=== PATIENT | female | born 1950 | race Caucasian/White ===

== ENCOUNTER 2016-04-06 06:30 | Inpatient (IN) | payer OTHER ==
[2016-04-05 09:15] VITALS: BMI 38.7
[2016-04-06] VITALS (27 sets, daily range): BP systolic 106–188; BP diastolic 60–103; PULSE 56–90; RESP 10–20; Ht 160 cm; Wt 102.1 kg
[~2016-04-06] VITALS: Ht 160 cm; Wt 102.1 kg
[~2016-04-06 06:30] MED LIST: IBUP-1542 PO
[2016-04-06] MEDS ORDERED: BACITRACIN 50000 UNITS INJ ONE (07:43)
[2016-04-06] MEDS ORDERED: morphine SULFATE/PF (10 MG/10 ML) INJ ONE (07:57)
[2016-04-06] MEDS ORDERED: FENTAnyl 50 MCG/ML VIAL ONE (07:58)
[2016-04-06] MEDS ORDERED: PROPOFOL 40 ML ONE ×2 (07:58→10:09)
[2016-04-06] MEDS ORDERED: POLYMYXIN B 500000 UNIT INJ ONE (08:02)
--- NOTE | 2016-04-06 08:23 | HPN ---
Date/Time of Note Date/Time of Note DATE: 04/06/16 TIME: 08:23 Interval H&P Admission Note Pt. seen H&P reviewed: No system changes RANJITH MICHELLE MD Apr 06, 2016 08:23
[2016-04-06] MEDS ORDERED: MIDAZOLAM 1 MG/ML 2 ML INJ ONE (08:28)
[2016-04-06] MEDS ORDERED: TRANEXAMIC ACID 1,020 MG in SOD CHLORIDE 0.9% 100 ML IVPB ONE (08:30)
[2016-04-06] MEDS ORDERED: CEFAZOLIN 1 GM INJ ONE (08:47)
[2016-04-06] MEDS ORDERED: ROPIVACAINE 0.5 % 30 ML VIAL ONE ×2 (09:25→10:08)
[2016-04-06] MEDS ORDERED: CLONIDINE 1000 MCG INJ ONE (09:25)
[2016-04-06] MEDS ORDERED: HYDROmorphONE 1 MG/ML SYG IV PRN ×2 (10:00)
[2016-04-06] MEDS ORDERED: NALOXONE (0.4 MG/ML) INJ IV PRN ×2 (10:00→11:00)
[2016-04-06] MEDS ORDERED: ZOLPIDEM 5 MG TAB PO PRN ×2 (10:00→11:00)
[2016-04-06] MEDS ORDERED: ONDANSETRON 4 MG INJ IV PRN (10:00)
[2016-04-06] MEDS ORDERED: HEMOSTATIC MATRIX SYG ZFS ONE (10:31)
--- NOTE | 2016-04-06 10:58 | OPPN ---
Date/Time of Note Date/Time of Note DATE: 04/06/16 TIME: 10:56 Operative/Procedure Note Right knee OA Pre-Operative Diagnosis Right knee OA Post-Operative Diagnosis Same Procedure Right Total knee replacement Surgeon: RANJITH MICHELLE MD Glass Cut Off Tender: KATHI DURAN Anesthesiologist: GINNY MALIK DO Implants/Grafts [employer] Implants Femur size 4 Tibia size 4 Insert 13 mm Patella A38 Drains None Complications: None Anesthesia type: regional RANJITH MICHELLE MD Apr 06, 2016 10:58
[2016-04-06] MEDS ORDERED: MAGNESIUM HYDROXIDE 30ML CUP PO PRN (11:00)
[2016-04-06] MEDS ORDERED: DOCUSATE SODIUM 100 MG CAP PO ONE (11:00)
[2016-04-06] MEDS ORDERED: SENNA/DOCUSATE NA (8.6MG/50MG) TAB PO PRN (11:00)
[2016-04-06] MEDS ORDERED: oxyCODONE 5 MG TAB PO PRN ×2 (11:00)
[2016-04-06] MEDS: CEFAZOLIN 1 GM/50 ML (PMX) 50 ML IVPB SCH ×2 (11:55→18:48)
[2016-04-06] MEDS: DIPHENHYDRAMINE 50 MG INJ IV PRN ×2 (11:57→17:25)
[2016-04-06] MEDS: ACETAMINOPHEN 500 MG TAB PO SCH ×3 (12:00→23:32)
--- NOTE | 2016-04-06 12:00 | OPR ---
DATE OF OPERATION: 04/06/2016 PREOPERATIVE DIAGNOSIS: Right knee osteoarthritis, severe. POSTOPERATIVE DIAGNOSIS: Right knee osteoarthritis, severe. OPERATION PERFORMED: Right total knee replacement. SURGEON: Castillo Montanez MD GREY ROLL WORKER: PETEY Loera ANESTHESIA: Spinal anesthetic adductor canal block with general endotracheal anesthesia. ANESTHESIOLOGIST: Dr. Mamadou Randall INDICATIONS FOR PROCEDURE: Ms. Moreland is a 65-year-old female who has had progressive pain in the rig ht knee related to severe osteoarthritis. She has failed nonoperative treatment and now presents fo r elective right total knee replacement. Risks and benefits were discussed, risks including but not limited to infection, bleeding, blood dudley ts, hardware failure, hardware prominence, dislocation, fracture, nerve damage, blood vessel damage, along with anesthetic complications, and informed consent was obtained. DESCRIPTION OF PROCEDURE: The patient's correct extremity was identified in the preoperative area. She was brought back to the operating room where she had a spinal anesthetic. She then had general endotracheal anesthesia. Right lower extremity was prepped and draped in standard sterile manner. Preoperative antibiotics were administered. A time-out was performed. I then used an Esmarch to e xsanguinate the extremity, a thigh tourniquet was inflated to 250 mmHg. I then made a standard midli ne incision for approaching the knee. I went through skin and subcutaneous tissue, incised the fasc ia, made a medial parapatellar arthrotomy, flexed the knee, made an entry hole in the distal femur, made my distal femoral cut. I then marked the rotation 3 degrees of external rotation. I then made my anterior, posterior chamfer cuts. I then turned my attention to the tibia. I put my retractors , made my tibial cut until flexion and extension gaps were symmetric with a 13 block. I then triale d using a size 4 femur, size 4 tibia, and a 13 insert. The knee went from full extension to full fl exion with just a jog opening varus valgus stress. I then turned my attention to patella and over t he top a cutting guide was used to cut the patellar to the appropriate thickness. An asymmetr ic 38 patella had a good fit and did track well without any external pressure. I then made my peg h oles through the femoral trial. I punched the tibia. I then took out all trial instruments and tho roughly irrigated the bony surfaces, dried them with a lap sponge, and then cemented a size 4 tibia, size 4 femur, asymmetric 38 patella, a trialed 13 insert was placed until cement hardened, I then t ook out the trial insert and let down the tourniquet, obtained adequate hemostasis. I then impacted a 13 mm all poly insert until it locked into place. I did not need to use a drain. I thoroughly i rrigated the knee joint and closed the medial parapatellar arthrotomy with #1 Vicryl, subcutaneous t issue was closed with 2-0 Vicryl, skin with darrell. Dry sterile dressing was applied. The patient had 2+ dorsalis pedis pulse with a warm foot at the end of the case. She was then extubated and tr ansported to recovery in stable condition. Dictated By: CASTILLO MONTANEZ MD, RA/MYRTLE Conf#: [id number] DID#: [id number]
--- NOTE | 2016-04-06 12:00 | RADRPT ---
PROCEDURE: XR right knee. CLINICAL INDICATION: Knee pain. TECHNIQUE: AP and lateral views are available for review. COMPARISON: No comparison available FINDINGS: There is a postoperative total knee replacement. There is no evidence of loosening of the prosthesis . The osseous structures are normal in mineralization, architecture and alignment No acute fracture or dislocation is seen.No osseous lesions are identified. There are postoperative soft tissue es . IMPRESSION: Unremarkable postoperative total knee replacement. Postoperative soft tissue changes RPTAT: [facility]DB .Bernardino Canchola MD, Date Time Electronically viewed and signed by .Bernardino Canchola MD, on 04/06/2016 12:00 .B/
[2016-04-06] MEDS: ONDANSETRON 4 MG INJ IV SCH ×3 (12:07→23:32)
[2016-04-06] MEDS ORDERED: hydrALAzine 20 MG INJ ONE (12:30)
[2016-04-06] MEDS: hydrALAzine 20 MG INJ IV PRN ×2 (13:09→13:13)
[2016-04-06] MEDS: hydrOXYzine HCL 10 MG TAB GTB PRN ×2 (15:22→21:44)
[2016-04-06] MEDS: oxyCODONE 5 MG TAB PO PRN (23:32)
[2016-04-07 00:05] VITALS: BP 113/52; RESP 20
[2016-04-07] MEDS: CEFAZOLIN 1 GM/50 ML (PMX) 50 ML IVPB SCH (03:16)
[2016-04-07 04:00] VITALS: BP 121/58; PULSE 86; RESP 18
[2016-04-07 05:32] LABS: BASOPHILS % 0.3 % (0.0-2.0); EOSINOPHILS # 0.2 10^3/ul (0.0-0.5); EOSINOPHILS % 1.5 % (0.0-7.0); HEMATOCRIT 33.3 % (37.0-47.0); HEMOGLOBIN 11.4 g/dl (12.0-16.0); LYMPHOCYTES # 1.6 10^3/ul (0.8-2.9); LYMPHOCYTES % 14.5 % (15.0-51.0); MEAN CORPUSCULAR HEMOGLOBIN 30.1 pg (29.0-33.0); MEAN CORPUSCULAR HGB CONC 34.4 g/dl (32.0-37.0); MEAN CORPUSCULAR VOLUME 87.3 fl (82.0-101.0); MEAN PLATELET VOLUME 9.2 fl (7.4-10.4); MONOCYTE # 0.9 10^3/ul (0.3-0.9); NEUTROPHIL # 8.5 10^3/ul (1.6-7.5); NEUTROPHILS % 75.7 % (39.0-77.0); PLATELET COUNT 185 10^3/UL (140-440); RED BLOOD COUNT 3.81 10^6/ul (4.20-5.40); RED CELL DISTRIBUTION WIDTH 13.3 % (11.5-14.5); UNCORRECTED WBC 11.3 10^3/ul (4.8-10.8); WHITE BLOOD COUNT 11.3 10^3/ul (4.8-10.8)
[2016-04-07] MEDS: hydrOXYzine HCL 10 MG TAB GTB PRN (05:54)
[2016-04-07] MEDS: ACETAMINOPHEN 500 MG TAB PO SCH ×3 (05:54→18:14)
[2016-04-07] MEDS: ONDANSETRON 4 MG INJ IV SCH (05:54)
[2016-04-07 05:57] LABS: CONDITION 1
[2016-04-07 06:02] LABS: INR 1.15; PROTIME 14.7 Sec (12.2-14.2); PT RATIO 1.1
[2016-04-07 06:20] LABS: POTASSIUM 4.2 mmol/L (3.5-5.1)
[2016-04-07 06:23] LABS: CREATININE 0.84 mg/dl (0.44-1.00)
[2016-04-07 07:00] VITALS: BP 127/60; RESP 20
[2016-04-07] MEDS: oxyCODONE 5 MG TAB PO PRN (07:26)
--- NOTE | 2016-04-07 09:04 | PN ---
Date/Time of Note Date/Time of Note DATE: 04/07/16 TIME: 09:02 Assessment/Plan Lines/Catheters IV Catheter Type (from Nrs): Peripheral IV Russo in Place (from Nrs): Yes Assessment/Plan Chief Complaint/Hosp Course s/p R Total Knee replacement Problems: Assessment/Plan OOB with PT, CPM Aspirin for DVT prophylaxis SCD's B LE D/c Russo Discharge planning, home on Saturday Subjective 24 Hr Interval Summary Complaining of some pain Exam/Review of Systems Vital Signs Vitals Vital Signs Date Time Temp Pulse Resp B/P Pulse Ox O2 Delivery O2 Flow Rate FiO2 04/07/16 07:00 98.1 77 20 127/60 97 04/07/16 04:00 Room Air 04/06/16 11:30 6.0 Intake and Output 04/06/16 04/06/16 04/07/16 15:00 23:00 07:00 Intake Total 1300 ml 750 ml 550 ml Output Total 350 ml 1100 ml 1100 ml Balance 950 ml -350 ml -550 ml Exam Free Text/Dictation R LE- Dressing c/d/i. Calf soft and non tender Foot warm 2+ DP Intact motor and sensory function in toes Constitutional: alert Results Result Diagram: 04/07/16 0415 04/07/16 0415 RANJITH MICHELLE MD Apr 07, 2016 09:04
[2016-04-07] MEDS: DOCUSATE SODIUM 100 MG CAP PO SCH ×2 (10:09→20:01)
[2016-04-07] MEDS: ASPIRIN (EC) 325 MG TAB PO SCH ×2 (10:09→20:01)
--- NOTE | 2016-04-07 11:32 | PN ---
Date/Time of Note Date/Time of Note DATE: 04/07/16 TIME: 11:31 Assessment/Plan VTE Prophylaxis VTE Prophylaxis Intervention: other Lines/Catheters IV Catheter Type (from Nrsg): Saline Lock Urinary Cath still in place: No (DC'D) Assessment/Plan Chief Complaint/Hosp Course 1) knee pain - s/p total knee replacement - PT Problems: Subjective 24 Hr Interval Summary Free Text/Dictation Pruritis is better but now patient is concerned about being too drowsy with narcotic pain medication Exam/Review of Systems Vital Signs Vitals Vital Signs Date Time Temp Pulse Resp B/P Pulse Ox O2 Delivery O2 Flow Rate FiO2 04/07/16 08:00 2.0 04/07/16 07:00 98.1 77 20 127/60 97 04/07/16 04:00 Room Air Intake and Output 04/06/16 04/06/16 04/07/16 15:00 23:00 07:00 Intake Total 1300 ml 750 ml 550 ml Output Total 350 ml 1100 ml 1100 ml Balance 950 ml -350 ml -550 ml Exam Constitutional: well developed Head: atraumatic, normocephalic Neck: supple Respiratory: clear to auscultation Cardiovascular: regular rate and rhythm Gastrointestinal: non-tender, soft Results Result Diagram: 04/07/16 0415 04/07/16 0415 Results 24 hrs Laboratory Tests Test 04/07/16 04:15 Anion Gap 13 Basophils # 0.0 Basophils % 0.3 Blood Urea Nitrogen 16 Calcium Level 8.0 L Carbon Dioxide Level 26 Chloride Level 101 Creatinine 0.84 Eosinophils # 0.2 Eosinophils % 1.5 Glucose Level 130 Hematocrit 33.3 L Hemoglobin 11.4 L INR International Normalized Ratio 1.15 Lymphocytes # 1.6 Lymphocytes % 14.5 L Mean Corpuscular Hemoglobin 30.1 Mean Corpuscular Hemoglobin Concent 34.4 Mean Corpuscular Volume 87.3 Mean Platelet Volume 9.2 Monocytes # 0.9 Monocytes % 8.0 Neutrophils # 8.5 H Neutrophils % 75.7 Nucleated Red Blood Cells # 0.0 Nucleated Red Blood Cells % 0.0 Platelet Count 185 Potassium Level 4.2 Prothrombin Time 14.7 H Prothrombin Time Ratio 1.1 Red Blood Count 3.81 L Red Cell Distribution Width 13.3 Sodium Level 136 White Blood Count 11.3 H Medications Medications Current Medications Oxycodone HCl (Roxicodone) 20 mg Q3H PRN PO PAIN LEVEL 8-10; Start 04/06/16 at 11:00 Oxycodone HCl (Roxicodone) 10 mg Q3H PRN PO PAIN LEVEL 4-7 Last administered on 04/07/16 07:26; Admin Dose 10 MG; Start 04/06/16 at 11:00 Oxycodone HCl (Roxicodone) 5 mg Q3H PRN PO PAIN LEVEL 1-3; Start 04/06/16 at 11 :00 Acetaminophen (Tylenol Tab) 500 mg Q6 PO Last administered on 04/07/16 05:54; Admin Dose 500 MG; Start 04/06/16 at 12:00 Zolpidem Tartrate (Ambien) 5 mg HS PRN PO INSOMNIA; Start 04/06/16 at 11:00 Aspirin (Ecotrin) 325 mg BID PO Last administered on 04/07/16 10:09; Admin Dose 325 MG; Start 04/07/16 at 09:00 Pantoprazole (Protonix Tab) 40 mg DAILY@06 PO ; Start 04/08/16 at 06:00 Docusate Sodium (Colace) 200 mg BID PO Last administered on 04/07/16 10:09; Admin Dose 200 MG; Start 04/07/16 at 09:00; Stop 04/10/16 at 08:59 Senna/Docusate Sodium (Senokot-S) 2 tab BID PRN PO CONSTIPATION; Start at 11:00 Magnesium Hydroxide (Milk Of Mag) 30 ml HS PRN PO CONSTIPATION; Start 04/06/16 at 11:00 Naloxone HCl (Narcan) 0.2 mg Q2M PRN IV DECREASED REPIRATORY RATE; Start at 11:00 Hydroxyzine HCl (Atarax) 10 mg Q6H PRN GTB ITCHING Last administered on 05:54; Admin Dose 10 MG; Start 04/06/16 at 15:00 Clonidine (Catapres) 0.1 mg Q6H PRN PO SBP GREATER THAN 160 Last administered on 04/06/16 17:25; Admin Dose 0.1 MG; Start 04/06/16 at 17:00 JACINTO GILLIAM Apr 07, 2016 11:32
[2016-04-07] MEDS: HYDROCODONE/APAP (5/325) TAB PO PRN ×2 (16:55→21:23)
[2016-04-07 19:39] VITALS: BP 176/77; RESP 20
[2016-04-07 22:19] VITALS: BP 163/73; PULSE 72; RESP 18
[2016-04-08] VITALS (8 sets, daily range): BP systolic 123–193; BP diastolic 62–79; PULSE 68–97; RESP 16–20
[2016-04-08] MEDS: ACETAMINOPHEN 500 MG TAB PO SCH ×5 (00:55→23:58)
[2016-04-08 05:45] LABS: INR 1.22; PROTIME 15.5 Sec (12.2-14.2); PT RATIO 1.2
[2016-04-08 05:46] LABS: POTASSIUM 3.9 mmol/L (3.5-5.1)
[2016-04-08 05:48] LABS: CREATININE 0.82 mg/dl (0.44-1.00)
[2016-04-08 05:49] LABS: CALCIUM 8.5 mg/dl (8.4-10.2)
[2016-04-08 05:55] LABS: BASOPHILS % 0.3 % (0.0-2.0); EOSINOPHILS # 0.1 10^3/ul (0.0-0.5); HEMATOCRIT 32.9 % (37.0-47.0); HEMOGLOBIN 11.5 g/dl (12.0-16.0); LYMPHOCYTES # 2.6 10^3/ul (0.8-2.9); LYMPHOCYTES % 23.4 % (15.0-51.0); MEAN CORPUSCULAR HEMOGLOBIN 30.5 pg (29.0-33.0); MEAN CORPUSCULAR HGB CONC 34.9 g/dl (32.0-37.0); MEAN CORPUSCULAR VOLUME 87.6 fl (82.0-101.0); MEAN PLATELET VOLUME 9.1 fl (7.4-10.4); MONOCYTE # 1.1 10^3/ul (0.3-0.9); MONOCYTES % 9.7 % (0.0-11.0); NEUTROPHIL # 7.4 10^3/ul (1.6-7.5); NEUTROPHILS % 65.6 % (39.0-77.0); PLATELET COUNT 183 10^3/UL (140-440); RED BLOOD COUNT 3.76 10^6/ul (4.20-5.40); RED CELL DISTRIBUTION WIDTH 13.4 % (11.5-14.5); UNCORRECTED WBC 11.3 10^3/ul (4.8-10.8); WHITE BLOOD COUNT 11.3 10^3/ul (4.8-10.8)
[2016-04-08] MEDS: PANTOPRAZOLE (EC) 40 MG TAB PO SCH (06:02)
[2016-04-08 06:52] LABS: CONDITION 1
[2016-04-08] MEDS: ASPIRIN (EC) 325 MG TAB PO SCH ×2 (08:35→20:05)
[2016-04-08] MEDS: DOCUSATE SODIUM 100 MG CAP PO SCH ×2 (08:35→20:05)
--- NOTE | 2016-04-08 12:15 | PN ---
Date/Time of Note Date/Time of Note DATE: 04/08/16 TIME: 12:15 Assessment/Plan VTE Prophylaxis VTE Prophylaxis Intervention: other Lines/Catheters IV Catheter Type (from Nrsg): Saline Lock Urinary Cath still in place: No Assessment/Plan Chief Complaint/Hosp Course 1) knee pain - s/p total knee replacement - PT Problems: Subjective 24 Hr Interval Summary Free Text/Dictation Patient feels better, able to ambulate now Exam/Review of Systems Vital Signs Vitals Vital Signs Date Time Temp Pulse Resp B/P Pulse Ox O2 Delivery O2 Flow Rate FiO2 04/08/16 12:11 94 144/66 04/08/16 07:26 98.6 16 96 04/08/16 06:08 Room Air 04/07/16 08:00 2.0 Intake and Output 04/07/16 04/07/16 04/08/16 15:00 23:00 07:00 Intake Total 940 ml 900 ml Output Total 1100 ml Balance 940 ml -200 ml Exam Constitutional: well developed Head: atraumatic, normocephalic Neck: supple Respiratory: clear to auscultation Cardiovascular: regular rate and rhythm Gastrointestinal: non-tender, soft Results Result Diagram: 04/08/16 0425 04/08/16 0425 Results 24 hrs Laboratory Tests Test 04/08/16 04:25 Anion Gap 14 Basophils # 0.0 Basophils % 0.3 Blood Urea Nitrogen 14 Calcium Level 8.5 Carbon Dioxide Level 29 Chloride Level 97 Creatinine 0.82 Eosinophils # 0.1 Eosinophils % 1.0 Glucose Level 117 Hematocrit 32.9 L Hemoglobin 11.5 L INR International Normalized Ratio 1.22 Lymphocytes # 2.6 Lymphocytes % 23.4 Mean Corpuscular Hemoglobin 30.5 Mean Corpuscular Hemoglobin Concent 34.9 Mean Corpuscular Volume 87.6 Mean Platelet Volume 9.1 Monocytes # 1.1 H Monocytes % 9.7 Neutrophils # 7.4 Neutrophils % 65.6 Nucleated Red Blood Cells # 0.0 Nucleated Red Blood Cells % 0.0 Platelet Count 183 Potassium Level 3.9 Prothrombin Time 15.5 H Prothrombin Time Ratio 1.2 Red Blood Count 3.76 L Red Cell Distribution Width 13.4 Sodium Level 136 White Blood Count 11.3 H Medications Medications Current Medications Oxycodone HCl (Roxicodone) 20 mg Q3H PRN PO PAIN LEVEL 8-10; Start 04/06/16 at 11:00 Oxycodone HCl (Roxicodone) 10 mg Q3H PRN PO PAIN LEVEL 4-7 Last administered on 04/07/16 07:26; Admin Dose 10 MG; Start 04/06/16 at 11:00 Oxycodone HCl (Roxicodone) 5 mg Q3H PRN PO PAIN LEVEL 1-3; Start 04/06/16 at 11 :00 Acetaminophen (Tylenol Tab) 500 mg Q6 PO Last administered on 04/08/16 12:11; Admin Dose 500 MG; Start 04/06/16 at 12:00 Zolpidem Tartrate (Ambien) 5 mg HS PRN PO INSOMNIA; Start 04/06/16 at 11:00 Aspirin (Ecotrin) 325 mg BID PO Last administered on 04/08/16 08:35; Admin Dose 325 MG; Start 04/07/16 at 09:00 Pantoprazole (Protonix Tab) 40 mg DAILY@06 PO Last administered on 04/08/16 06 :02; Admin Dose 40 MG; Start 04/08/16 at 06:00 Docusate Sodium (Colace) 200 mg BID PO Last administered on 04/08/16 08:35; Admin Dose 200 MG; Start 04/07/16 at 09:00; Stop 04/10/16 at 08:59 Senna/Docusate Sodium (Senokot-S) 2 tab BID PRN PO CONSTIPATION; Start at 11:00 Magnesium Hydroxide (Milk Of Mag) 30 ml HS PRN PO CONSTIPATION; Start 04/06/16 at 11:00 Naloxone HCl (Narcan) 0.2 mg Q2M PRN IV DECREASED REPIRATORY RATE; Start at 11:00 Hydroxyzine HCl (Atarax) 10 mg Q6H PRN GTB ITCHING Last administered on 05:54; Admin Dose 10 MG; Start 04/06/16 at 15:00 Clonidine (Catapres) 0.1 mg Q6H PRN PO SBP GREATER THAN 160 Last administered on 04/07/16 20:00; Admin Dose 0.1 MG; Start 04/06/16 at 17:00 Acetaminophen/ Hydrocodone Bitart ([place] (5/325)) 1 tab Q6H PRN PO moderate pain Last administered on 04/07/16t 21:23; Admin Dose 1 TAB; Start 04/07/16 at 11:30 Clonidine (Catapres) 0.1 mg Q4H PRN PO SBP>160; Start 04/07/16 at 20:00 JACINTO GILLIAM Apr 08, 2016 12:15
[2016-04-09 00:10] VITALS: BP 139/65; PULSE 93; RESP 18
[2016-04-09 05:32] LABS: INR 1.22; PROTIME 15.5 Sec (12.2-14.2); PT RATIO 1.2
[2016-04-09 05:43] LABS: POTASSIUM 3.9 mmol/L (3.5-5.1)
[2016-04-09 05:46] LABS: CALCIUM 8.5 mg/dl (8.4-10.2); CREATININE 0.75 mg/dl (0.44-1.00)
[2016-04-09 05:48] LABS: BASOPHILS % 0.3 % (0.0-2.0); EOSINOPHILS # 0.2 10^3/ul (0.0-0.5); EOSINOPHILS % 2.1 % (0.0-7.0); HEMATOCRIT 31.8 % (37.0-47.0); HEMOGLOBIN 11.2 g/dl (12.0-16.0); LYMPHOCYTES # 2.8 10^3/ul (0.8-2.9); LYMPHOCYTES % 25.3 % (15.0-51.0); MEAN CORPUSCULAR HEMOGLOBIN 30.8 pg (29.0-33.0); MEAN CORPUSCULAR HGB CONC 35.1 g/dl (32.0-37.0); MEAN CORPUSCULAR VOLUME 87.6 fl (82.0-101.0); MEAN PLATELET VOLUME 9.1 fl (7.4-10.4); MONOCYTE # 0.9 10^3/ul (0.3-0.9); MONOCYTES % 7.7 % (0.0-11.0); NEUTROPHIL # 7.2 10^3/ul (1.6-7.5); NEUTROPHILS % 64.6 % (39.0-77.0); PLATELET COUNT 185 10^3/UL (140-440); RED BLOOD COUNT 3.63 10^6/ul (4.20-5.40); RED CELL DISTRIBUTION WIDTH 13.8 % (11.5-14.5); UNCORRECTED WBC 11.1 10^3/ul (4.8-10.8); WHITE BLOOD COUNT 11.1 10^3/ul (4.8-10.8)
[2016-04-09] MEDS: PANTOPRAZOLE (EC) 40 MG TAB PO SCH (06:00)
[2016-04-09] MEDS: ACETAMINOPHEN 500 MG TAB PO SCH ×3 (06:00→18:58)
[2016-04-09 06:16] LABS: CONDITION 1
[2016-04-09 08:09] VITALS: BP 135/63; RESP 18
[2016-04-09] MEDS: ASPIRIN (EC) 325 MG TAB PO SCH (09:06)
[2016-04-09] MEDS: DOCUSATE SODIUM 100 MG CAP PO SCH (09:06)
--- NOTE | 2016-04-09 15:45 | PN ---
DATE: SUBJECTIVE: The patient has no pain today. She has been working with physical therapy. She is afe brile. Vital signs are stable. OBJECTIVE: Evaluation of the right lower extremity reveals the incision is clean, dry and intact. There is no erythema. Calf is soft. She has intact motor and sensory function of the right foot, h as 2+ dorsalis pedis pulse. Postop day #3. This patient is doing very well. My recommendation is continued physical therapy. C ontinue the aspirin. She will be discharged to home today. She will need home physical therapy. S he will need home CPM, front-wheel walker. She will continue to be on aspirin 325 mg p.o. b.i.d. fo r DVT prophylaxis. Follow up in my office in 10 days' time. Dictated By: RANJITH MICHELLE MD, RA/MYRTLE Conf#: [id number] DID#: [id number]
--- NOTE | 2016-04-09 17:57 | PDOCDIS ---
Discharge Instructions CONDITION Patient Condition: Good HOME CARE INSTRUCTIONS: Diet Instructions: Reduced Sodium ACTIVITY: Activity Restrictions: Slowly Increase Activity FOLLOW UP/APPOINTMENTS Appointments PMD in 1-[address] Montanez next week JARED HEREDIA MD Apr 09, 2016 17:57
--- NOTE | 2016-04-10 07:30 | DS ---
DATE OF ADMISSION: 04/06/2016 DATE OF DISCHARGE: 04/09/2016 DISCHARGE DIAGNOSES: 1. Right knee osteoarthritis status post right total knee replacement. 2. Hypertension. DISCHARGE MEDICATIONS: 1. [place] 5/325 one to two q.4h. p.r.n. 2. Senna 1 b.i.d. 3. Norvasc 10 mg once a day. FOLLOWUP: The patient is to follow up with the PMD in 1 to 2 weeks. Follow up with Dr. Montanez i n 1 week. Home health has been arranged. REASON FOR ADMISSION: The patient is a 65-year-old female with a history of osteoarthritis of the r ight knee, was seen by Dr. Montanez as an outpatient and was brought into the hospital for elective right total knee replacement. The patient's postoperative course was complicated by multiple readi ngs of elevated blood pressure, and for that the patient was put on clonidine on a p.r.n. basis. Th e patient progressed well with physical therapy and was seen by Dr. Montanez this morning and was c leared for discharge. The patient will also be given aspirin 325 b.i.d. for DVT prophylaxis for abo ut 4 weeks. Plan of care discussed with the patient's family. On the day of discharge, the patient is breathing comfortably. Denies any chest pain or shortness of breath. Postoperative pain is wel l controlled. PHYSICAL EXAMINATION: VITAL SIGNS: Temperature 97.8, pulse 85, respirations 18, blood pressure 135/63, O2 saturation 99% on room air. HEENT: Conjunctivae and lids are normal. NECK: No mass. CHEST: Clear to auscultation. CARDIOVASCULAR: S1, S2 normal, no murmur. ABDOMEN: Soft, nondistended, nontender. EXTREMITIES: No leg edema. NEUROLOGIC: The patient is awake, alert, fairly oriented. LABORATORIES: Done this morning, WBC 11.1, hemoglobin 9.2. Chemistry done this morning revealed no rmal basic metabolic panel. Dictated By: JARED HEBERT/MYRTLE Conf#: [id number] DID#: [id number]
== END 2016-04-09 19:15 | disposition home health service (06) | DRG 470 ==
LOC: REC 06:30 → MS1 13:08
PROVIDERS: ADMIT Specialist; ATTEND Specialist
PROC: 0SRC0J9 Replacement of Right Knee Joint with Synthetic Substitute, Cemented, Open Approach (ICD-10-PCS; principal; 2016-04-06 08:00)
DX: M17.11 Unilateral primary osteoarthritis, right knee (principal); I10 Essential (primary) hypertension; L29.9 Pruritus, unspecified; E66.9 Obesity, unspecified; Z68.39 Body mass index [BMI] 39.0-39.9, adult
CPT/HCPCS: 73560; 80048; 85025; 85610; 87086; 88304; 88311; 97116; 97163; 97530; C1713; J0360; J0690; J0735; J1200; J2250; J2274; J2405; J2795; J3010

== ENCOUNTER 2017-07-29 11:59 | Day surgery (SDC) | END 2017-07-29 18:40 | disposition home or self-care (01) ==

== ENCOUNTER 2017-11-15 06:21 | Day surgery (SDC) | END 2017-11-15 11:00 | disposition home or self-care (01) ==